=== PATIENT | female | born 1930 | race Caucasian/White ===

== ENCOUNTER 2017-06-25 16:17 | Inpatient (IN) | payer MEDICARE, OTHER ==
[~2017-06-25] VITALS: Ht 157.5 cm; Wt 52.3 kg
[2017-06-25 16:44] LABS: BASOPHILS % (AUTO) 0.9 % (0.0-5.0); EOSINOPHILS % (AUTO) 0.8 % (0.0-8.0); HEMATOCRIT 40.6 % (36-48); LYMPHOCYTES % (AUTO) 16.6 % (21.0-51.0); MEAN CORPUSCULAR HEMOGLOBIN 31.1 pg (27.0-33.0); MEAN CORPUSCULAR VOLUME 91.5 fL (79-99); MONOCYTES % (AUTO) 14.5 % (3.0-13.0); NEUTROPHILS % (AUTO) 67.2 % (40.0-77.0); PLATELET COUNT (AUTO) 229 K/uL (130-400); RED BLOOD CELL COUNT(AUTO) 4.44 MIL/uL (4.00-5.50); RED CELL DISTRIBUTION WIDTH 13.7 % (11.0-15.5); WHITE BLOOD COUNT (AUTO) 7.1 K/uL (4.8-10.8)
[2017-06-25 16:56] LABS: CREATININE 0.8 mg/dL (0.5-1.5)
[2017-06-25 16:59] LABS: PARTIAL THROMBOPLASTIN TIME 25.4 SEC (26.3-35.5)
[2017-06-25] MEDS ORDERED: IPRATROPIUM/ALBUTEROL SULFATE 3 ML SOLUTION IH ONE ×3 (17:07→20:29)
[2017-06-25 17:10] LABS: ALBUMIN 3.6 g/dL (3.5-5.0); BILIRUBIN,TOTAL 1.4 mg/dL (0.2-1.0); CREATINE KINASE MB 2.5 ng/mL (0.5-3.6); INR 0.97 (0.85-1.15); PROTHROMBIN TIME 10.2 SEC (9.6-11.6); TOTAL PROTEIN, SERUM 7.4 g/dL (6.0-8.3)
[2017-06-25] MEDS ORDERED: METHYLPREDNISOLONE SOD SUCC 40MG/ML 1ML ONE (18:21)
[2017-06-25] MEDS ORDERED: LEVOFLOXACIN 500 MG/D5W 100 ML 100 ML ONE (19:13)
[2017-06-25] MEDS ORDERED: LORAZEPAM 1 MG TABLET ONE (22:00)
[2017-06-26] MEDS ORDERED: ONDANSETRON HCL 4 MG/2 ML VIAL IVP PRN (00:45)
[2017-06-26] MEDS: METHYLPREDNISOLONE SOD SUCC 40MG/ML 1ML IVP SCH ×3 (00:45→17:08)
[2017-06-26] MEDS ORDERED: LEVOFLOXACIN 500 MG/D5W 100 ML 100 ML IV SCH (00:45)
[2017-06-26] MEDS: IPRATROPIUM/ALBUTEROL SULFATE 3 ML SOLUTION IH SCH ×6 (02:00→22:40)
[2017-06-26] MEDS ORDERED: PHARMACY COMMUNICATION MISC SCH (02:15)
[2017-06-26] MEDS ORDERED: AZTREONAM 2 GM VIAL ONE (02:16)
[2017-06-26] MEDS ORDERED: IPRATROPIUM/ALBUTEROL SULFATE 3 ML SOLUTION IH ONE (02:32)
[2017-06-26] MEDS ORDERED: METHYLPREDNISOLONE SOD SUCC 40MG/ML 1ML ONE (03:55)
[2017-06-26 04:32] LABS: ABG BASE EXCESS 6.2 mmol/L (-2.0-3.0); ABG HCO3 29.4 mmol/L (21.0-28.0); ABG OXYGEN SATURATION 96.9 % (95.0-99.0); ABG PCO2 38 mmHg (32-45)
[2017-06-26] MEDS ORDERED: ALBUTEROL SULFATE 0.083% 2.5 MG/3 ML INH IH ONE (04:38)
[2017-06-26] MEDS ORDERED: POTASSIUM CHLORIDE 10% ELIXIR 20 MEQ/15 ML UDCUP ONE (04:54)
[2017-06-26 05:10] VITALS: BP 137/69
[2017-06-26] MEDS ORDERED: POTASSIUM CHLORIDE 20MEQ/100ML 100 ML IV ONE (05:46)
[2017-06-26] MEDS ORDERED: POTASSIUM CHLORIDE 20MEQ/100ML 100 ML IV PRN (06:30)
[2017-06-26] MEDS ORDERED: LIDOCAINE HCL-MPF 1% 2ML VIAL IJ PRN (06:30)
[2017-06-26] MEDS ORDERED: POTASSIUM CHLORIDE 20 MEQ ERTAB PO PRN (06:30)
[2017-06-26 08:00] VITALS: BP 133/65
[2017-06-26] MEDS: FAMOTIDINE 20MG TAB 20 MG TAB PO SCH ×2 (09:02→21:23)
[2017-06-26] MEDS: ENOXAPARIN SODIUM 30 MG/0.3 ML SQ SCH (09:03)
[2017-06-26] MEDS: POTASSIUM CHLORIDE 10% ELIXIR 20 MEQ/15 ML UDCUP PO PRN ×3 (09:26→17:09)
[2017-06-26 12:06] VITALS: BP 131/68
[2017-06-26] MEDS ORDERED: ACETAMINOPHEN 325 MG TAB PO PRN ×2 (14:30)
[2017-06-26] MEDS ORDERED: HYDRALAZINE HCL 20 MG/ML VIAL IV PRN (14:30)
[2017-06-26 16:00] VITALS: BP 143/67
[2017-06-26] MEDS ORDERED: HYDR25TA PO (18:55)
[2017-06-26] MEDS ORDERED: POTA-81 PO (18:55)
[2017-06-26] MEDS ORDERED: IPRA3AMP4 IH (18:55)
[2017-06-26] MEDS: LORAZEPAM 2 MG/ML 1 ML VIAL IVP PRN (19:28)
[2017-06-26 20:00] VITALS: BP 178/78
[2017-06-26] MEDS: AZTREONAM 1 GM VIAL IVP SCH (21:23)
[2017-06-26 23:46] VITALS: BP 128/70
[2017-06-27] VITALS (8 sets, daily range): BP systolic 119–153; BP diastolic 60–76
[2017-06-27] MEDS: METHYLPREDNISOLONE SOD SUCC 40MG/ML 1ML IVP SCH ×3 (01:40→16:51)
[2017-06-27] MEDS: IPRATROPIUM/ALBUTEROL SULFATE 3 ML SOLUTION IH SCH ×6 (02:06→21:57)
[2017-06-27 05:38] LABS: CREATININE 0.8 mg/dL (0.5-1.5); MAGNESIUM 1.7 mg/dL (1.80-2.40); POTASSIUM 4.9 mmol/L (3.5-5.1)
[2017-06-27] MEDS: FAMOTIDINE 20MG TAB 20 MG TAB PO SCH ×2 (08:53→20:11)
[2017-06-27] MEDS: ENOXAPARIN SODIUM 30 MG/0.3 ML SQ SCH (08:54)
[2017-06-27] MEDS ORDERED: WATER FOR INJECTION,STERILE 20 ML VIAL ONE (20:04)
[2017-06-27] MEDS: AZTREONAM 1 GM VIAL IVP SCH (20:11)
[2017-06-27] MEDS: LORAZEPAM 2 MG/ML 1 ML VIAL IVP PRN (20:11)
[2017-06-28] MEDS: METHYLPREDNISOLONE SOD SUCC 40MG/ML 1ML IVP SCH ×2 (02:13→09:00)
[2017-06-28] MEDS: IPRATROPIUM/ALBUTEROL SULFATE 3 ML SOLUTION IH SCH ×6 (02:27→21:53)
[2017-06-28 04:23] VITALS: BP 119/47
[2017-06-28 08:04] VITALS: BP 144/62
[2017-06-28] MEDS: ENOXAPARIN SODIUM 30 MG/0.3 ML SQ SCH (09:01)
[2017-06-28] MEDS: FAMOTIDINE 20MG TAB 20 MG TAB PO SCH ×2 (09:01→21:04)
[2017-06-28 11:59] VITALS: BP 164/80
[2017-06-28 16:40] VITALS: BP 146/65
[2017-06-28 20:07] VITALS: BP 153/71
[2017-06-28] MEDS: AZTREONAM 1 GM VIAL IVP SCH (21:04)
[2017-06-28] MEDS ORDERED: ZOLPIDEM TARTRATE 5 MG TAB ONE (23:33)
[2017-06-29] VITALS (7 sets, daily range): BP systolic 138–164; BP diastolic 61–82
[2017-06-29] MEDS: IPRATROPIUM/ALBUTEROL SULFATE 3 ML SOLUTION IH SCH ×6 (01:57→21:40)
[2017-06-29] MEDS: FAMOTIDINE 20MG TAB 20 MG TAB PO SCH ×2 (10:05→19:50)
[2017-06-29] MEDS: ENOXAPARIN SODIUM 30 MG/0.3 ML SQ SCH (10:05)
[2017-06-29] MEDS: PREDNISONE 20 MG TABLET PO SCH (10:05)
[2017-06-29] MEDS ORDERED: CEFD300C3 PO (11:02)
[2017-06-29 14:20] LABS: ABG BASE EXCESS 6.9 mmol/L (-2.0-3.0); ABG HCO3 29.4 mmol/L (21.0-28.0); ABG OXYGEN SATURATION 95.8 % (95.0-99.0); ABG PCO2 35 mmHg (32-45)
[2017-06-29] MEDS: HYDROCHLOROTHIAZIDE 25 MG TABLET PO SCH (15:05)
[2017-06-29] MEDS: AZTREONAM 1 GM VIAL IVP SCH (19:50)
[2017-06-29] MEDS: ZOLPIDEM TARTRATE 5 MG TAB PO PRN (19:51)
[2017-06-30] MEDS: IPRATROPIUM/ALBUTEROL SULFATE 3 ML SOLUTION IH SCH ×6 (02:02→22:28)
[2017-06-30 03:00] VITALS: BP 144/61
[2017-06-30 05:57] LABS: HEMATOCRIT 40.1 % (36-48); MEAN CORPUSCULAR HEMOGLOBIN 31.1 pg (27.0-33.0); MEAN CORPUSCULAR HGB CONC 33.7 g/dL (32.0-36.0); MEAN CORPUSCULAR VOLUME 92.2 fL (79-99); NUCLEATED RED BLOOD CELLS 0.1 % (0.0-0.19); PLATELET COUNT (AUTO) 255 K/uL (130-400); RED BLOOD CELL COUNT(AUTO) 4.35 MIL/uL (4.00-5.50); RED CELL DISTRIBUTION WIDTH 14.1 % (11.0-15.5); WHITE BLOOD COUNT (AUTO) 8.4 K/uL (4.8-10.8)
[2017-06-30 06:25] LABS: ALBUMIN 2.8 g/dL (3.5-5.0); BILIRUBIN,TOTAL 0.7 mg/dL (0.2-1.0); CREATININE 0.7 mg/dL (0.5-1.5); POTASSIUM 3.6 mmol/L (3.5-5.1); TOTAL PROTEIN, SERUM 5.9 g/dL (6.0-8.3)
[2017-06-30 06:38] LABS: B-TYPE NATRIURETIC PEPTIDE 94 pg/mL (0-100)
[2017-06-30 07:56] VITALS: BP 168/76
[2017-06-30] MEDS: HYDROCHLOROTHIAZIDE 25 MG TABLET PO SCH (08:25)
[2017-06-30] MEDS: PREDNISONE 20 MG TABLET PO SCH (08:25)
[2017-06-30] MEDS: FAMOTIDINE 20MG TAB 20 MG TAB PO SCH ×2 (08:26→20:09)
[2017-06-30] MEDS: POTASSIUM CHLORIDE 20 MEQ ERTAB PO SCH (08:26)
[2017-06-30] MEDS: ENOXAPARIN SODIUM 30 MG/0.3 ML SQ SCH (08:27)
[2017-06-30 11:29] VITALS: BP 164/73
[2017-06-30 15:15] VITALS: BP 121/71
[2017-06-30 19:00] VITALS: BP 148/68
[2017-06-30] MEDS: AZTREONAM 1 GM VIAL IVP SCH (20:09)
[2017-06-30] MEDS: ZOLPIDEM TARTRATE 5 MG TAB PO PRN (20:09)
[2017-06-30 23:00] VITALS: BP 143/68
[2017-07-01] MEDS: IPRATROPIUM/ALBUTEROL SULFATE 3 ML SOLUTION IH SCH ×5 (01:49→18:22)
[2017-07-01 03:00] VITALS: BP 144/63
[2017-07-01 07:00] VITALS: BP 135/79
[2017-07-01 10:01] VITALS: BP 117/77
[2017-07-01] MEDS: PREDNISONE 20 MG TABLET PO SCH (10:26)
[2017-07-01] MEDS: HYDROCHLOROTHIAZIDE 25 MG TABLET PO SCH (10:27)
[2017-07-01] MEDS: FAMOTIDINE 20MG TAB 20 MG TAB PO SCH (10:27)
[2017-07-01] MEDS: POTASSIUM CHLORIDE 20 MEQ ERTAB PO SCH (10:27)
[2017-07-01] MEDS: ENOXAPARIN SODIUM 30 MG/0.3 ML SQ SCH (10:29)
[2017-07-01 11:00] VITALS: BP 131/76
[2017-07-01 16:00] VITALS: BP 128/68
[2017-07-01] MEDS: AZTREONAM 1 GM VIAL IVP SCH (18:12)
== END 2017-07-01 18:53 | disposition home or self-care (01) | DRG 189 ==
LOC: EDH 16:17 → EDHIP 18:38 → 4CH 06-26 05:04
PROVIDERS: ADMIT Family Medicine; ATTEND Family Medicine
DX: J96.01 Acute respiratory failure with hypoxia (principal); J44.1 Chronic obstructive pulmonary disease with (acute) exacerbation; E87.1 Hypo-osmolality and hyponatremia; I10 Essential (primary) hypertension; E87.6 Hypokalemia; J98.01 Acute bronchospasm; Z87.891 Personal history of nicotine dependence; Z90.710 Acquired absence of both cervix and uterus; Z88.1 Allergy status to other antibiotic agents
CPT/HCPCS: 36415; 36600; 71045; 80048; 80053; 82550; 82553; 82803; 83735; 83880; 84484; 85025; 85027; 85610; 85730; 87633; 93005; 94640; 94664; 94760; A4218; J0360; J1650; J1956; J2060; J2920; J3480; J3490

== ENCOUNTER 2017-07-04 16:03 | Inpatient (IN) | payer OTHER ==
[~2017-07-04] VITALS: Ht 157.5 cm; Wt 49.8 kg
[~2017-07-04 16:03] MED LIST: CEFD300C3 PO; HYDR25TA PO; IPRA3AMP4 IH; POTA-81 PO
[2017-07-04 16:43] LABS: BASOPHILS % (AUTO) 0.1 % (0.0-5.0); EOSINOPHILS % (AUTO) 0.2 % (0.0-8.0); HEMATOCRIT 40.7 % (36-48); LYMPHOCYTES % (AUTO) 9.7 % (21.0-51.0); MEAN CORPUSCULAR HEMOGLOBIN 30.9 pg (27.0-33.0); MEAN CORPUSCULAR VOLUME 90.9 fL (79-99); MONOCYTES % (AUTO) 13.3 % (3.0-13.0); NEUTROPHILS % (AUTO) 76.7 % (40.0-77.0); PLATELET COUNT (AUTO) 293 K/uL (130-400); RED BLOOD CELL COUNT(AUTO) 4.48 MIL/uL (4.00-5.50); RED CELL DISTRIBUTION WIDTH 13.8 % (11.0-15.5); WHITE BLOOD COUNT (AUTO) 11.6 K/uL (4.8-10.8)
[2017-07-04 17:08] LABS: ALBUMIN 3.3 g/dL (3.5-5.0); CREATININE 0.8 mg/dL (0.5-1.5); POTASSIUM 3.2 mmol/L (3.5-5.1); TOTAL PROTEIN, SERUM 6.6 g/dL (6.0-8.3)
[2017-07-04 18:57] LABS: APPEARANCE,URINE SL CLOUDY (CLEAR); BILIRUBIN,URINE NEGATIVE (NEGATIVE); COLOR,URINE YELLOW (YELLOW); GLUCOSE, URINE (UA) NEGATIVE (NEGATIVE); KETONES,URINE 5 mg/dL (NEGATIVE); LEUKOCYTE ESTERASE ,URINE NEGATIVE (NEGATIVE); NITRATE,URINE NEGATIVE (NEGATIVE); OCCULT BLOOD,URINE NEGATIVE (NEGATIVE); PH,URINE 7.5 (5.0-8.0); PROTEIN,URINE NEGATIVE (NEGATIVE); UROBILINOGEN,URINE 0.2 mg/dL (0.2-1.0)
[2017-07-04] MEDS ORDERED: POTASSIUM BICARB/CIT AC 25 MEQ TABLET.EFF ONE (19:32)
[2017-07-04 19:59] LABS: RBC,URINE 0-1 /HPF (0-1); WBC,URINE 0-1 /HPF (0-1)
[2017-07-04 20:00] LABS: BACTERIA,URINE Few /HPF (None Seen); HYALINE CASTS, URINE 0-1 /LPF (0-1 /LPF); SQUAMOUS EPITHELIAL CELL,UR Rare /LPF (0-2)
[2017-07-04 22:15] VITALS: BP 166/77
[2017-07-04] MEDS ORDERED: POTASSIUM CHLORIDE 20MEQ/100ML 100 ML IV PRN (22:45)
[2017-07-04] MEDS ORDERED: LIDOCAINE HCL-MPF 1% 2ML VIAL IVP PRN (22:45)
[2017-07-04] MEDS ORDERED: POTASSIUM CHLORIDE 10% ELIXIR 20 MEQ/15 ML UDCUP PO PRN (22:45)
[2017-07-04 23:10] LABS: CREATINE KINASE MB 0.8 ng/mL (0.5-3.6); CREATINE KINASE, TOTAL 29 U/L (21-232); MYOGLOBIN 80 ng/mL (10-92); TROPONIN I < 0.04 ng/mL (0.00-0.06)
[2017-07-04] MEDS ORDERED: DOXY100T19 PO (23:20)
[2017-07-04] MEDS: SODIUM CHLORIDE 0.9% 1000ML 1,000 ML IV SCH (23:25)
[2017-07-04 23:26] VITALS: BP 142/55
[2017-07-05 03:53] VITALS: BP 134/73
[2017-07-05 05:04] LABS: CREATINE KINASE MB 1.2 ng/mL (0.5-3.6); CREATINE KINASE, TOTAL 43 U/L (21-232); MYOGLOBIN 117 ng/mL (10-92); TROPONIN I < 0.04 ng/mL (0.00-0.06)
[2017-07-05] MEDS: POTASSIUM CHLORIDE 20 MEQ ERTAB PO PRN ×2 (06:56→20:15)
[2017-07-05 07:00] VITALS: BP 138/64
[2017-07-05 11:00] VITALS: BP 137/65
[2017-07-05 11:17] LABS: CREATINE KINASE MB 0.6 ng/mL (0.5-3.6); CREATINE KINASE, TOTAL 19 U/L (21-232); MYOGLOBIN 68 ng/mL (10-92); TROPONIN I < 0.04 ng/mL (0.00-0.06)
[2017-07-05] MEDS: SODIUM CHLORIDE 0.9% 1000ML 1,000 ML IV SCH (12:13)
[2017-07-05 15:58] VITALS: BP 126/56
[2017-07-05] MEDS ORDERED: MORPHINE SULFATE 2 MG/ML 1ML SYG IV PRN (16:45)
[2017-07-05] MEDS ORDERED: GUAIFENESIN-DM 200/20 MG 10 ML PO PRN (16:45)
[2017-07-05] MEDS ORDERED: LACTULOSE 20 GM/30 ML UDCUP PO PRN (16:45)
[2017-07-05] MEDS ORDERED: ONDANSETRON HCL 4 MG/2 ML VIAL IV PRN (16:45)
[2017-07-05] MEDS ORDERED: ACETAMINOPHEN-CODEINE 300/30MG TAB PO PRN (16:45)
[2017-07-05] MEDS ORDERED: HYDRALAZINE HCL 20 MG/ML VIAL IV PRN (16:45)
[2017-07-05] MEDS ORDERED: DIPHENHYDRAMINE HCL 25 MG CAPSULE PO PRN (16:45)
[2017-07-05] MEDS ORDERED: DiphenhydrAMINE HCL 50 MG/ML VIAL IV PRN (16:45)
[2017-07-05] MEDS ORDERED: ZOSYN 3.375GM+NS 50ML 50 ML IV SCH (16:45)
[2017-07-05] MEDS: MEROPENEM 1 GM VIAL IVP SCH (18:17)
[2017-07-05] MEDS: IPRATROPIUM/ALBUTEROL SULFATE 3 ML SOLUTION IH SCH (18:49)
[2017-07-05 19:30] VITALS: BP 128/64
[2017-07-05] MEDS: FAMOTIDINE 20MG TAB 20 MG TAB PO SCH (20:13)
[2017-07-05] MEDS: BENZONATATE 100 MG CAPSULE PO SCH (20:15)
[2017-07-05 23:10] VITALS: BP 151/77
[2017-07-06] MEDS: SODIUM CHLORIDE 0.9% 1000ML 1,000 ML IV SCH (02:01)
[2017-07-06 03:10] VITALS: BP 137/60
[2017-07-06] MEDS: MEROPENEM 1 GM VIAL IVP SCH ×2 (05:29→17:15)
[2017-07-06] MEDS: IPRATROPIUM/ALBUTEROL SULFATE 3 ML SOLUTION IH SCH ×3 (07:10→11:31)
[2017-07-06 08:37] VITALS: BP 127/52
[2017-07-06] MEDS: FAMOTIDINE 20MG TAB 20 MG TAB PO SCH (08:56)
[2017-07-06] MEDS: BENZONATATE 100 MG CAPSULE PO SCH ×2 (08:57→14:00)
[2017-07-06] MEDS ORDERED: ENOXAPARIN SODIUM 40 MG/0.4 ML SYRINGE SQ SCH (09:00)
[2017-07-06] MEDS ORDERED: POTASSIUM CHLORIDE 20 MEQ ERTAB PO SCH (09:00)
[2017-07-06] MEDS ORDERED: HYDROCHLOROTHIAZIDE 25 MG TABLET PO SCH (09:00)
[2017-07-06 12:00] VITALS: BP 138/65
[2017-07-06 16:00] VITALS: BP 144/72
== END 2017-07-06 18:05 | disposition home or self-care (01) | DRG 74 ==
LOC: EDH 16:03 → EDHIP 19:51 → OBSVTOIN 19:51 → 3BH 21:35
PROVIDERS: ADMIT Family Medicine; ATTEND Family Medicine
DX: G90.8 Other disorders of autonomic nervous system (principal); J44.9 Chronic obstructive pulmonary disease, unspecified; K52.9 Noninfective gastroenteritis and colitis, unspecified; I10 Essential (primary) hypertension; K44.9 Diaphragmatic hernia without obstruction or gangrene; Z90.710 Acquired absence of both cervix and uterus; Z90.49 Acquired absence of other specified parts of digestive tract; Z88.8 Allergy status to other drugs, medicaments and biological substances
CPT/HCPCS: 36415; 71045; 74176; 80053; 81001; 82550; 82553; 83874; 84132; 84484; 85025; 93005; 93306; 93880; 94640; 94664; A4218; J1650; J2185; J7030